=== PATIENT | male | born 1970 | race Caucasian/White ===

== ENCOUNTER 2020-07-27 23:56 | Emergency (ER) | payer OTHER ==
[~2020-07-27] VITALS: Ht 193 cm; Wt 81.6 kg
[2020-07-28 00:04] VITALS: BP 140/90
--- NOTE | 2020-07-28 00:07 | NUR ---
TO LOBBY AMBULATORY
--- NOTE | 2020-07-28 00:51 | NUR ---
PT AMBULATED TO ER BED 2
[2020-07-28 01:11] VITALS: BP 140/90
--- NOTE | 2020-07-28 01:11 | NUR ---
COVERING PRIMARY RN FOR LUNCH RELIEF. SEE COMPLETE ASSESSMENT FOR FURTHER INFORMATION.
--- NOTE | 2020-07-28 01:12 | NUR ---
Dr. Alvarado examining patient.
--- NOTE | 2020-07-28 01:21 | NUR ---
SLING SIZE LARGE PLACED ON PT R ARM, FASTENED TO SIZE
== END 2020-07-28 01:27 | disposition home or self-care (01) ==
LOC: MED 23:56
DX: M75.21 Bicipital tendinitis, right shoulder (principal); F17.210 Nicotine dependence, cigarettes, uncomplicated
CPT/HCPCS: 73030; 99283

== ENCOUNTER 2020-09-16 21:18 | Emergency (ER) | payer OTHER ==
[~2020-09-16] VITALS: Ht 193 cm; Wt 90.7 kg
[2020-09-16 21:27] VITALS: BP 140/91
--- NOTE | 2020-09-16 21:50 | NUR ---
SEE COMPLETE ASSESSMENT FOR FURTHER DETAILS.
--- NOTE | 2020-09-16 22:02 | NUR ---
Dr. Iniguez examining patient.
[2020-09-16] MEDS ORDERED: CLINDAMYCIN 150 MG CAP PO ONE (22:20)
[2020-09-16] MEDS ORDERED: CLIN-223 PO (23:20)
[2020-09-16] MEDS ORDERED: NAPR-54 PO (23:20)
[2020-09-16 23:24] VITALS: BP 140/91
--- NOTE | 2020-09-16 23:24 | NUR ---
Patient discharged with v/s stable. Written and verbal after care instructions given and explained. Patient alert, oriented and verbalized understanding of instructions. Ambulatory with steady gait. All questions addressed prior to discharge. ID band removed. Patient advised to follow up with PMD. Rx of CLINDAMYCIN AND NAPROXEN given. Patient educated on indication of medication including possible reaction and side effects. Opportunity to ask questions provided and answered.
== END 2020-09-16 23:24 | disposition home or self-care (01) ==
LOC: MED 21:18
DX: K04.01 Reversible pulpitis (principal); K02.9 Dental caries, unspecified; F17.200 Nicotine dependence, unspecified, uncomplicated; Z79.899 Other long term (current) drug therapy
CPT/HCPCS: 99283